=== PATIENT | male | born 1975 | race Caucasian/White ===

== ENCOUNTER → 2019-05-01 | Outpatient (CLI) | payer OTHER, SELFPAY ==
[2019-05-01 15:22] VITALS: BMI 27.6
== END | disposition home or self-care (01) ==
LOC: LABSPEC 05-03 14:51
PROVIDERS: Visit Provider Physician Assistant Surgical
DX: R10.9 Unspecified abdominal pain (principal)
CPT/HCPCS: 87086

== ENCOUNTER 2024-05-10 20:23 | Observation (INO) | payer BC, SELFPAY ==
[2024-05-10] VITALS (12 sets, daily range): BP systolic 125–145; BP diastolic 79–96; PULSE 86–97; RESP 16–18; TEMP 36.6–37.2; O2SAT 94–100; BMI 25.9
--- NOTE | 2024-05-10 20:30 | ED.RN ---
Dr Guzman at bedside, already accepted patient from [facility] to take to surgery. Pt not to be seen by ED physician. Dr Guzman gave verbal orders to ED and states to get patient to OR quickly and not to prep patient. Per Dr Guzman, obtain IV access, place patient in gown only and have patient urinate.
--- NOTE | 2024-05-10 20:34 | EDS_ITS ---
<Statement entered by Cristopher Rodriguez DO - 05/10/24 20:35> The patient is a transfer from [facility] for general surgical evaluation of appendicitis. He is not an ED patient but was brought to the emergency room to be registered and transferred to preoperative holding. HPI History of Present Illness Chief Complaint: Abd Pain [facility] Medical History (Updated 05/01/19 @ 16:48 by SOURAV Zaidi) Hx of migraine headaches Home Medications ?Medication ?Instructions ?Recorded ?Last Taken ?Type NK 05/10/24 Unknown History Allergy/AdvReac Type Severity Reaction Status Date / Time No Known Allergies Allergy Verified 05/10/24 20:23 Surgical History no surgical history Social History (Updated 05/01/19 @ 16:49 by SOURAV Zaidi) Smoking Status: Never smoker EXAM Physical Exam Const Vital Signs: 05/10/24 20:23 Temperature 98 F Temperature Source Temporal Pulse Rate 97 Respiratory Rate 16 Blood Pressure 141/93 H Blood Pressure Mean 109 Pulse Ox 98 Oxygen Delivery Method Room Air Discharge Plan Triage Chief Complaint: Abd Pain ED Provider: Cristopher Rodriguez Dx/Rx/DC Orders Prescriptions: No Action NK Print Language: Czech
--- NOTE | 2024-05-10 20:35 | PCM.HP.STD ---
HPI - General General Date of Service: 05/10/24 HPI Narrative CINDY RODRIGUEZ, is a 48 M who presents to the ER due to abdominal pain. Patient states started yesterday however was able to sleep overnight as it improved and this afternoon it did get worse right lower quadrant only brief nausea yesterday denies any nausea or vomiting today. Patient did have a hamburger at about noon today. Patient went to [facility] ER with a white blood cell count of 14.9 did receive Zosyn IV and a CT abdomen pelvis which showed acute appendicitis uncomplicated per report. Patient is never had previous abdominal surgeries. [facility] Medical History (Updated 05/10/24 @ 20:[address] Stefanie Guzman MD) Hx of migraine headaches Home Medications ?Medication ?Instructions ?Recorded ?Last Taken ?Type NK 05/10/24 Unknown History Allergy/AdvReac Type Severity Reaction Status Date / Time No Known Allergies Allergy Verified 05/10/24 20:23 Surgical History no surgical history Social History (Updated 05/01/19 @ 16:49 by Kailash BENJAMIN, SOURAV) Smoking Status: Never smoker Vital Signs Vital Signs Vital Signs: 05/10/24 20:23 Temperature 98 F Temperature Source Temporal Pulse Rate 97 Respiratory Rate 16 Blood Pressure 141/93 H Blood Pressure Mean 109 Pulse Ox 98 Oxygen Delivery Method Room Air Weight Weight: 191 lb Body Mass Index (BMI) 25.9 Physical Exam Const alert, oriented x3 and no apparent distress HEENT normocephalic and head/scalp atraumatic Resp normal respiratory effort Cardio regular rate GI soft to palpation; Negative for non-distended Palpation: tender RLQ; Negative for guarding Extremity no clubbing, cyanosis or edema Neuro CN's II-XII intact bilaterally Psych mental status grossly normal Assessment & Plan Assessment/Plan (1) Acute appendicitis: PLAN: Plan 1. Discussed procedure laparoscopic appendectomy, possible open along with the risk but not limited to bleeding, infection/abscess, injury to another organ (small bowel, colon, etc.), adhesion, hernia at incision sites, and anesthesia. Patient is had no further question this time. Stefanie Guzman M.D. Pager: [phone] [facility] [address] [place] [address], [address] [place] [address] Office: [phone]
--- NOTE | 2024-05-10 21:06 | PCM.PRE.AN2 ---
ASA Classification* ASA Classification ASA Classification: 1 and E Assessment & Plan Anesthesia* Anesthesia Assessment Anesthesia Assessment: Discussed sedation and/or anesthesia options, risks, benefits, and alternatives with patient/parents/legal guardian/POA. Questions invited. The patient/parents/legal guardian/POA seems to understand and agrees to proceed with anesthesia plan. Reviewed the physical assessment, medical history, allergy history and patient home medications list prior to surgery/procedure/anesthetic and documented any changes. Performed airway and anesthesia risk assessments. Anesthesia Type Anesthesia Type: General History Source History Obtained from:: Patient and Chart Anesthesia Focused Assessment* Temperature: 98 F Pulse Rate: 97 Blood Pressure: 141/93 Respiratory Rate: 16 Pulse Ox: 98 Oxygen Delivery Method: Room Air Airway Assessment Mouth opens: >3 cm Mallampati Score: I Teeth Condition: Intact Neck Range of motion (ROM): Limited ROM (Slightly decreased extension) Focused Labs Anesthesia Preop lab: CBC CHEMISTRY COAG Pre-Assessment Diagnosis/Proposed Procedure Planned Operative Procedure(s): Laparoscopic appendectomy Anesthesia History Anesthesia History - glass deposition tender: Anesthesia History - glass deposition tender Hx Hospitalization Any Problems With Anesthesia No 05/10/24 20:34 Cholinesterase deficiency No 05/10/24 20:34 You/Your Family Experience No 05/10/24 20:34 fever (hyperthermia) with Relationship Recent Exposure to Contagious No 05/10/24 20:34 Disease Does patient have nerve No 05/10/24 20:34 stimulator Patient instructed to have No 05/10/24 20:34 device shut off --Does patient have Pacemaker No 05/10/24 20:34 or ICD? When Was Last Pacemaker Check QUESTION #4 FULL TEXT: You/Your Family Experience fever (hyperthermia) with Anesthesia Last Oral Intake Last Oral intake: Last Oral Intake NPO since 12:00 05/10/24 20:34 Meds taken in AM with sips of water? Meds patient instructed to take am of surgery PONV PONV - glass deposition tender: PONV - glass deposition tender Female HX of Motion Sickness HX of N/V After Surgery Non-Smoker Duration of Surgery greater than 60 minutes Number of Risk Factors PONV Score Height & Weight Height & Weight: Anesthesia: Height & Weight Height 6 ft 05/10/24 20:34 Weight: 86.636 kg 05/10/24 20:34 Body Mass Index (BMI) 25.9 05/10/24 20:34 Respiratory Assessment Respiratory Assessment - glass deposition tender: Respiratory Tract Infection Hx - glass deposition tender Hx Respiratory Tract Infection No 05/10/24 20:34 STOP Sleep Apnea STOP Sleep Apnea - glass deposition tender: STOP Sleep Apnea - glass deposition tender Hx Hypertension No 05/10/24 20:34 Hx Sleep Apnea No 05/10/24 20:34 CPAP BIPAP Do you snore loudly (louder No 05/10/24 20:34 than talking or can be heard Do you often feel tired/ No 05/10/24 20:34 fatigued/ sleepy during daytime? Has anyone observed you stop No 05/10/24 20:34 breathing during sleep? STOP Results Negative 05/10/24 20:34 QUESTION #5 FULL TEXT : Do you snore loudly (louder than talking or can be heard through closed doors)? Tobacco Use History Tobacco Use History - glass deposition tender: Tobacco Use History - glass deposition tender Tobacco Use Smoking Status Never smoker 05/10/24 20:33 Hx Tobacco Use Years Smoking Packs Smoked per Day Smoking Cessation Date was within the last 15 years Hx Smoking Cessation Date Hx Smoking Cessation Counseling Hematologic Medial History Hematologic Hx - glass deposition tender: Hematologic Medical Hx - molder shoulder pad Hx of Blood Transfusion Hx of Transfusion in last 3 Months Date of Last Transfusion (if within last 3 months) Ever experience any problems with transfusion(s)? Specify any problems Hx of Preganancy in last 3 Months Nurse Filling Out Transfusion & Questions: Date: Time: Patient unable to answer at this time (ie. confused, unrespo /Reproduction History /Reproductive History - glass deposition tender: /Reproductive Hx- glass deposition tender Hx Now Gestational Age (in weeks): EDC: Hx Hx Para Hx Section SAB PFSH Medical History Hx of migraine headaches Home Medications ?Medication ?Instructions ?Recorded ?Last Taken ?Type NK 05/10/24 Unknown History Allergy/AdvReac Type Severity Reaction Status Date / Time iodine AdvReac Mild Rash Verified 05/10/24 20:37 Surgical History no surgical history no surgical history Social History Smoking Status: Never smoker Review of Systems (Anesthesia) ROS Narrative System reviewed and no additional complaints, except as documented.
[2024-05-10] MEDS: Bupivacaine Mpf 0.5% 30 ML VIAL (21:23)
--- NOTE | 2024-05-10 21:50 | APP_PTH ---
PATIENT: CINDY RODRIGUEZ LOC: MS3 U#:[id number] AGE/SX: 48/M ROOM: MI314 RE05/10/[address]: Dr. Stefanie Guzman MD : 1975 BED: 1 DIS: 05/11/2024 SPEC #: [id number] RECD: 05/11/24 10:45 STATUS: MICHAEL RADHA #: [id number] RUBINA: 05/10/24 21:[address]: Stefanie Guzman DEPT: SURGICAL PATHOLOGY RECD BY: Latrice Poole ENTERED: 05/11/24 11:21 SP TYPE: APPENDIX OTHR DR: No Primary Care Phys Tissues: Appendix, NOS Procedures: Surgery Specimen Level III HEADER OPERATION: Laparoscopic, appendectomy PRE-OP DIAGNOSIS: Acute appendicitis TISSUE SUBMITTED: Appendix MICROSCOPIC DIAGNOSIS Appendix, appendectomy: Acute necrotizing appendicitis. Acute serositis. AM/mr 05/12/2024 MICROSCOPIC DESCRIPTION Slides are reviewed. GROSS DESCRIPTION Received in fixative is one container labeled with the patient's name and designated appendix. The specimen consists of lateral L shaped appendix measuring 7.5 cm in length and up to 1.0 cm in diameter. The attached periappendiceal adipose tissue measures up to 2.0 cm in width. The serosa is congested and covered focally with rodriguez purulent exudate. No obvious perforation is identified. Mucosa is congested and hemorrhagic. The lumen is filled with fecal material. No fecalith is identified. Core Driller sections are submitted in one cassette. MAI: 05/11/2024 TC:2 CPT: 55905
--- NOTE | 2024-05-10 21:54 | PCM.OPRPT ---
Report of Operation Date of Procedure: 05/10/24 Pre-Operative Diagnosis: acute appendicitis Post-Operative Diagnosis: same Surgery/Procedure Performed:: Laparoscopic appendectomy Surgeon: Stefanie Guzman Type of Anesthesia: General/Supplemental Anesthesiologist: Venkatesh Maguire Special Medications: zosyn 4.5 g IV x 1 in [facility] Specimen's removed: appendix Estimated Blood Loss (mL): <10 cc Description of Procedure: indications: 48-year-old male presented to the ER with new right lower quadrant pain yesterday with worsening pain this afternoon. On workup he was found to have acute appendicitis on CT and a leukocytosis of 14.9. Patient was started on antibiotics in the ER for acute appendicitis-Zosyn 4.5 g IV x 1 at [facility] Description of the procedure: The patient was placed on operating table in supine position. General anesthesia was induced. A timeout was completed verifying correct patient, procedure, sacrum position and special, prior to beginning procedure. An orogastric tube placed. Abdomen was prepped and draped in usual sterile fashion. Incision was made in the natural skin line above the umbilicus. The stalk of the umbilicus was grasped with the Sindy's and elevated, next Earline's placed at the base of the umbilicus and the fascia. 2 sutures of 2-0 PDS were placed on each side of the fascia and elevated. A 15 blade scalpel was used to divide the under direct visualization. Entry into the peritoneum was confirmed visually and no bowel was noted in the vicinity of the incision. The Mckee trocar was placed under direct vision. The sutures were anchored around the cannula. Abdomen insufflated with a pressure of 12-15 mmHg. Patient tolerated insertion well. The scope was inserted and the abdomen inspected. No injuries from initial trocar placement were noted. Minimal amount of fluid was seen in the right lower quadrant. An direct visualization 2 -5 mm trocars were placed one above the symptoms his pubis and below the hairline and one in the left lower quadrant lateral to the rectus muscle. Care is taken to avoid injury to the bladder and inferior epigastric vessels. The table was placed in Trendelenburg position with the right side elevated. The appendix was grasped with atraumatic grasper and elevated. It was noted to be inflamed. A window was developed in the mesoappendix at the point between the base of the appendix and the cecum. An endoscopic 45 mm linear cutting stapler blue load was then used to divide and staple the base of the appendix. Enseal was used to divide the mesoappendix. The appendix was withdrawn into the Mckee trocar after being placed endoscopically treatable bag. Appendix was sent to pathology. The appendiceal stump was then irrigated and hemostasis was assured. Fluid was suctioned no other pathology was identified. Secondary trochars were removed under direct visualization. No bleeding was noted trocar sites. The laparoscope withdrawn and the umbilical trocar removed. The abdomen was allowed to collapse. Local anesthesia of 20 mL of 0.5% Marcaine was used at the incision sites. The umbilical trocar site was closed with the [id number] 0 Vicryl suture. The skin was closed up to clear sutures of 4-0 Monocryl and Steri-Strips. The patient was extubated. The patient tolerated the procedure well and was taken to the postanesthesia care unit in satisfactory condition. Complications none
--- NOTE | 2024-05-10 22:12 | PCM.POST.ANE ---
Anesthesia: Postop Eval I Current Vital Signs Temperature: 99 F Pulse Rate: 89 Blood Pressure: 139/94 Respiratory Rate: 16 Pulse Ox: 99 Oxygen Delivery Method: Room Air Assessment Airway patent: Yes Spontaneous unlabored respirations: Yes Mental status: Awake and Calm nausea: No Vomiting: No Anesthesia Complication: No Fluid Hydration Crystalloid volume administer (ml): 800 Total IV fluid infused: 800 Progress Note Anesthesia document: Postop Eval 1 completed: Yes
[2024-05-10] MEDS: Ketorolac 30 MG/ML Syringe IV (22:20)
--- NOTE | 2024-05-10 22:27 | PCM.POSTANE2 ---
Anesthesia Postop Eval I Sum Postop Eval Completion status Anesthesia document: Postop Eval 1 completed: Yes Anesthesia Postop Eval I Summary Anesthesia Postop Eval I Summary: Anesthesia Postop Eval I: Assessment Summary Airway patent Yes 05/10/24 22:16 Spontaneous unlabored Yes 05/10/24 22:16 respirations Mental status Awake,Calm 05/10/24 22:16 nausea No 05/10/24 22:16 Vomiting No 05/10/24 22:16 Anesthesia Postop Eval I: Fluid Summary Crystalloid volume administer 800 05/10/24 22:16 (ml) Colloids volume administered ( ml) Blood Product volume administered (ml) Total IV fluid infused 800 05/10/24 22:16 Anesthesia Postop Eval I: Summary Notes Anesthesia Complication No 05/10/24 22:16 Anesthesia Complication Comment: Post-operative progress note Anesthesia: Postop Eval II Evaluation Mental status: Awake and Calm Pain Level: 5 nausea: No Vomiting: No Complications Anesthesia Complication: No
[2024-05-10] MEDS: Lactated Ringers 1,000 ML 15 ML IV (22:37)
[2024-05-10] MEDS: Lactated Ringers 1,000 ML 120 ML IV (23:46)
[2024-05-11] VITALS (7 sets, daily range): BP systolic 110–138; BP diastolic 69–82; PULSE 71–92; RESP 16–18; TEMP 36.5–37.2; O2SAT 95–99
[2024-05-11] MEDS: Lactated Ringers 1,000 ML 120 ML IV (05:30)
[2024-05-11] MEDS: Acetaminophen 325 MG Tablet 650 MG PO (06:39)
[2024-05-11] MEDS: Ondansetron 4 MG/2 ML Vial IV (06:40)
--- NOTE | 2024-05-11 07:07 | PN.SURG_ITS ---
Subjective Subjective Patient is having headache this morning otherwise pain controlled Objective Data Objective Data Vital Signs: Vital Signs Temp Pulse Resp BP Pulse Ox O2 Del Method 97.7 F L 82 16 116/73 97 Room Air 05/11/24 06:27 05/11/24 06:27 05/11/24 06:27 05/11/24 06:27 05/11/24 06:27 05/11/24 06:27 Oxygen Delivery Method Room Air Weight: 190 lb 15.783 oz Body Mass Index (BMI) 25.9 Intake & Output: Intake and Output for Last 24 Hours 05/09/24 05/10/24 05/11/24 23:59 23:59 23:59 Intake Total 1088 / 1088 Balance 1088 / 1088 Physical Exam Resp normal respiratory effort Cardio regular rate GI GI Narrative: Abdomen: Soft, nondistended, tender near incision's dressed clean dry and intact, no peritoneal signs Assessment & Plan Assessment/Plan (1) S/P laparoscopic appendectomy: PLAN: Plan Patient is able to tolerate breakfast with p.o. DC home. Patient no questions this time. Stefanie Guzman M.D. Pager: [phone] [facility] [address] [place] [address], [address] [place] [address] Office: [phone]
--- NOTE | 2024-05-11 07:09 | DCINST_ITS ---
Discharge Instructions Diet Discharge Diet: Light diet - advance as tolerated Activity Discharge Activity: May Not Drive (while taking narcotic pain medications.) May shower in (days): 1 Lifting Restrictions: no lifting >20 lbs x 2 wks, no strenuous exercise for 4 wks Dressing / Incision Call your doctor if your incision/area has: Continuous Slow Oozing, Sudden Increased Bleeding, Increased Pain/ Swelling, Increased Redness, Foul Smelling Discharge and Swelling at the incision site Call your doctor if you observe: Fever of 101 or Higher Remove Dressing in: 2 days Cleanse incision/area with: Soap & Water Additional Dressing/Incision Instructions:: Steri-Strips will fall off in 7 to 10 days, if they do not fall off okay to remove after 10 days. Follow Up Care Please Follow Up With: Stefanie Guzman MD When: Call the office for a follow-up appointment 2 weeks; after 5 PM and on the weekends call [phone] with any concerns. Test Results: Test results from this visit will be discussed in further detail at your follow- up appointment, if applicable. Discharge Plan Admission Admit Date/Time: 05/10/24 20:37 Attending Provider: Stefanie Guzman Primary Care Provider: Care PhysicianShahana Primary Discharge Orders/Prescriptions Prescriptions: New oxycodone-acetaminophen 5-325 mg tablet 1 - 2 tab PO Q6H PRN (Reason: pain) 3 Days Qty: 14 0RF Referrals / Follow Up: Care PhysicianShahana Primary [Primary Care Provider] - Disposition Disposition (needs filled in before D/C Order can be placed): Home, Self Care
--- NOTE | 2024-05-11 08:17 | NURSING ---
pt c/o chest pain that has been increasing over 1 hour (per his report) pain is non radiating, states he feels like panic-pt assured that pain is mostly from gas pressure and that the only way to rid the body of that excess pressure is to ambulate-pt also has not voided and is aware that could be part of the scenerio also-CPS called and asked to come and complete STAT ekg for chest pain
--- NOTE | 2024-05-11 08:20 | EKG12_ITS ---
Test Reason : cp Blood Pressure : / mmHG Vent. Rate : 079 BPM Atrial Rate : 079 BPM P-R Int : 222 ms QRS Dur : 094 ms QT Int : 396 ms P-R-T Axes : 064 -15 068 degrees QTc Int : 454 ms Sinus rhythm with 1st degree A-V block Possible Left atrial enlargement Incomplete right bundle branch block Inferior infarct , age undetermined Abnormal ECG No previous ECGs available Confirmed by SANTHOSH LING, VANI ([id number]), map editor ELAYNE HARTMAN ([id number]) on 05/15/2024 9:45:44 AM Referred By: Confirmed By:SHERMAN TREVIZO MD
--- NOTE | 2024-05-11 08:24 | NURSING ---
CPS here for 12 lead, Dr Michaels notified by text of symptoms
[2024-05-11] MEDS: Morphine 2 MG/ML Syringe IV (08:35)
[2024-05-11] MEDS: Lactated Ringers 500 ML 999 ML IV (09:00)
[2024-05-11 09:47] LABS: Troponin-I HS 3 pg/mL (3.0-78.0)
[2024-05-11] MEDS: Lactated Ringers 250 ML 999 ML IV (09:47)
--- NOTE | 2024-05-11 10:38 | PHA.DC_ITS ---
Pharmacy [facility] has performed discharge medication reconciliation and counseling for this patient. 1. PERCOCET 5/325MG 1-2T PO Q6H PRN PAIN The patient's discharge medication list was reviewed for discrepancies and discrepancies were resolved. The patient was counseled on the following discharge medications and changes in medications for homegoing were reviewed. The Reason for Use, instructions for use, and potential side effects were reviewed for all new medications. The patient's questions regarding all of their medications were answered. The patient was able to verbally demonstrate an understanding of their discharge medications. Patient counseled by retail pharmacy manager Medications at Discharge Home Medications oxycodone-acetaminophen 5 mg-325 mg tablet 1 - 2 tab PO Q6H PRN pain 3 days #14 tabs 05/11/24
[2024-05-11] MEDS: Tamsulosin HCl 0.4 MG Capsule PO (13:35)
== END 2024-05-11 15:12 | disposition home or self-care (01) ==
LOC: ED 20:49 → ACINP 22:34 → MS3 22:49
PROVIDERS: Admitting Provider Surgery; Emergency Provider Surgery; Visit Provider Surgery
PROC: 0DTJ4ZZ Resection of Appendix, Percutaneous Endoscopic Approach (ICD-10-PCS; CPT 44970; principal; 2024-05-10 21:30)
DX: K35.80 Unspecified acute appendicitis (principal)
CPT/HCPCS: 44970; 00840; 36415; 84484; 88304; 93005; 94668; 96361; 96374; 96375; 99221; 99283; J7030; J7120; C1760; G0378; J2405